=== PATIENT | male | born 1955 | race Caucasian/White ===

== ENCOUNTER 2018-02-18 03:49 | Emergency (ER) | payer OTHER, SELFPAY ==
[2018-02-18 03:51] VITALS: BP 171/83; PULSE 54; RESP 17; TEMP 36.3; O2SAT 98; BMI 32.7
--- NOTE | 2018-02-18 04:09 | EKG12_ITS ---
Test Reason : ABD/CHEST PAIN Blood Pressure : / mmHG Vent. Rate : 063 BPM Atrial Rate : 063 BPM P-R Int : 166 ms QRS Dur : 106 ms QT Int : 430 ms P-R-T Axes : 057 -35 -24 degrees QTc Int : 440 ms Normal sinus rhythm Left axis deviation Abnormal ECG Confirmed by EWA PUENTE, ALAN ([id number]), assistant production editor KELLEY QUARLES ([id number] on 02/19/2018 2:56:28 PM Referred By: ELIDA Confirmed By:ALAN MCNEIL MD
--- NOTE | 2018-02-18 04:15 | ED.RN ---
NO OLD EKG'S IN MUSE
[2018-02-18 04:18] LABS: Absolute Lymphocyte Count 2.32 X10^3/ul (0.83-4.51); Absolute Neutrophil Count 7.5 X10^3/uL (2.0-7.7); Basophil# 0.02 X10^3/uL; Basophil% 0.2 % (0-1); Eosinophil# 0.07 X10^3/uL; Eosinophils% 0.7 % (0-5); Hematocrit 38.7 % (40-54); Hemoglobin 13.3 g/dl (13.0-16.5); Lymphocyte # 2.32 X10^3/ul (4.0); Lymphocyte % 21.7 % (19-41); Mean Corp Hgb Conc 34.4 g/gl (32-36); Mean Corpuscular Hgb 29.4 pg (27.0-32.0); Mean Corpuscular Volume 85.4 fL (80-94); Monocyte# 0.77 X10^3/uL; Monocyte% 7.2 % (0-10); Neutrophil # 7.46 X10^3/uL (2.7-7.7); Neutrophil % 69.8 % (47-70); Platelet Count 235 K/mm3 (150-450); RBC Distribution Width SD 40.3 fl (35.1-43.9); Red Blood Count 4.53 M/mm3 (4.6-6.2); White Blood Count 10.7 K/mm3 (4.4-11.0)
[2018-02-18] MEDS: Morphine 4 MG/ML Syringe IV (04:20)
[2018-02-18] MEDS: 0.9% Normal Saline 1,000 ML 1000 ML IV (04:20)
[2018-02-18 04:21] LABS: POSITIVE COUNT NO; POSITIVE DIFFERENTIAL NO; POSITIVE MORPHOLOGY NO
[2018-02-18 04:22] VITALS: BP 162/88; PULSE 58; RESP 18; O2SAT 97
[2018-02-18] MEDS: Ondansetron 4 MG/2 ML Vial IV (04:22)
[2018-02-18 04:32] LABS: AST(SGOT) 17 U/L (15-37); Alanine Aminotransfer ALT/SGPT 23 U/L (16-61); Albumin, Serum 3.8 g/dL (3.2-5.0); Alkaline Phosphatase 65 U/L (45-117); Anion Gap 7 (5-15); BUN 22 mg/dL (7-18); BUN/Creat Ratio 20.8 RATIO (10-20); Calcium,Total 8.9 mg/dL (8.5-10.1); Chloride 102 mmol/L (98-107); Creatinine, Serum 1.06 mg/dL (0.70-1.30); EST Glomerular Filtration Rate 75 mL/min (>60); Est Glom Filt Rate - Afr Amer 91 mL/min (>60); Estimated Creatinine Clearance 79.31 ml/min; Globulin 3.8 g/dL (2.2-4.2); Glucose 205 mg/dL (74-106); Lipase 244 U/L (73-393); Potassium 3.8 mmol/L (3.5-5.1); Protein, Total 7.6 g/dL (6.4-8.2); Sodium Level 138 mmol/L (136-145)
--- NOTE | 2018-02-18 04:38 | CT_ITS ---
STUDY: CT ABDOMEN AND PELVIS WITHOUT CONTRAST REASON FOR EXAM: Male, 62 years old. Mid epigastric pain RADIATION DOSAGE (If Supplied By Facility): CTDIvol = ( 19.79 ) mGy, DLP = ( 1023.23 ) mGycm TECHNIQUE: Transaxial images were obtained from the dome of the diaphragm to the symphysis pubis without oral contrast, and without intravenous contrast. Sagittal and coronal images were reconstructed. Individualized dose optimization techniques were used for this CT. COMPARISON: None. FINDINGS: The visualized lung bases are unremarkable. The visualized portions of the heart are within normal limits. Normal liver. Cholelithiasis. Normal spleen. Normal pancreas. Normal bilateral adrenal glands. Normal right kidney. Normal left kidney. Normal visualized stomach. Normal small intestine. There are multiple colonic diverticula consistent with diverticulosis. Constipation. The appendix is visualized and appears normal. There is diffuse atherosclerotic calcification of the abdominal aorta, without a demonstrated aneurysm. Normal inferior vena cava. Normal retroperitoneum. Normal urinary bladder. There is enlargement of the prostate gland. Normal abdominal wall. Normal osseous structures. CT/Abdomen/Pelvis without Cont IMPRESSION: Cholelithiasis. Constipation. No evidence of acute intestinal pathology or acute obstructive uropathy. Electronically Signed: Dariusz Solano MD at 5:54 EDT Tel , Service support ,
[2018-02-18 04:57] VITALS: BP 149/74; PULSE 59; RESP 15; O2SAT 96
--- NOTE | 2018-02-18 06:08 | ED.DCSUM_ITS ---
- ER Visit Summary Date of Service: 02/18/18 Chief Complaint: Abdominal pain History of Present Illness: The patient is a 62 M who presents with abdominal pain. It began abruptly about 3-1/2 hours prior to presentation. He describes this as indigestion it is epigastric. He currently rates it as 7 out of 10, it has been 8 out of 10 at its worst. He reports associated nausea. He denies fevers chest pain shortness of breath vomiting or diarrhea. He did have one prior similar episode about 2 years ago which resolved on its own. He tried some antacids Tums at home without relief. He denies a history of intolerance to fatty or greasy foods. Physical Examination: Afebrile vitals are stable Moist mucous membranes Heart regular rate and rhythm Lungs are clear to auscultation Abdomen soft nondistended he does have some epigastric and right upper quadrant tenderness no guarding no rebound no Pruitt's sign Test Results: EKG shows sinus rhythm at a rate of 63. CBC CMP lipase troponin all normal. CT of the abdomen and pelvis shows cholelithiasis. Emergency Department Course and Treatment: Patient was treated with morphine and Zofran here. On reevaluation he states I feel pretty good. He is resting comfortably. Cholelithiasis is noted on his CT but he does not have evidence of acute cholecystitis. He has normal hepatic function lipase and white cell count. He was advised on dietary restrictions and advised to follow- up as an outpatient with a general surgeon. He has previously seen Dr. Yuan. He was instructed on specific signs and symptoms to monitor for and conditions which should prompt return here to the ER for reevaluation. Patient comfortable with the plan, all questions answered at bedside and he was discharged. Treatment Plan: [] Disposition: Discharge Impression: Cholelithiasis This note was generated with [employer] dictation software. It may contain incorrect words, spelling, and punctuation that were not noted in review of the chart prior to signing ED Disposition - Plan for ED Patient: Chief Complaint: Abd Pain Referrals: Chucho Orozco MD [Primary Care Provider] -
--- NOTE | 2018-02-18 06:08 | ED.DEP ---
ED Disposition - Plan for ED Patient: Chief Complaint: Abd Pain Instructions: ED Abdominal Pain Gallstone Poss Referrals: Chucho Orozco MD [Primary Care Provider] - Anton Cadena MD [STAFF PHYSICIAN] -
[2018-02-18 06:19] VITALS: BP 149/70; PULSE 63; RESP 15; O2SAT 95
== END 2018-02-18 06:20 | disposition home or self-care (01) ==
PROVIDERS: Emergency Provider Emergency Medicine; Family Provider Family Medicine; PCP Family Medicine
DX: K80.20 Calculus of gallbladder without cholecystitis without obstruction (principal); E11.9 Type 2 diabetes mellitus without complications; I10 Essential (primary) hypertension; E78.00 Pure hypercholesterolemia, unspecified
CPT/HCPCS: 74176; 80053; 83690; 84484; 85025; 93005; 99283; J7030; A4216